=== PATIENT | male | born 1955 ===

== ENCOUNTER 2018-05-28 14:54 | Emergency (ER) | payer OTHER ==
[2018-05-28 15:07] VITALS: TEMP 98.2
--- NOTE | 2018-05-28 15:37 | C.PDOC ---
History Of Present Illness 62-YEAR-OLD MALE, PRESENTS TO THE EMERGENCY DEPARTMENT WITH COMPLAINTS OF RECUR EPISODE DIZZY, PALPITATIONS "SKIPPING" ONSET DIRECTOR SOFTWARE NOW RESOLVED. SIM EPISODE X 1 4 MO AGO, FIRST TIME RECUR TODAY. PENDING PMD APPT 06/14. CURRENTLY ASYMPT. EXAM NEG Time Seen by Provider: 05/28/18 15:19 Chief Complaint (Nursing): Dizziness/Lightheaded History Per: Patient History/Exam Limitations: no limitations Past Medical History Reviewed: Historical Data, Nursing Documentation, Vital Signs Vital Signs: Last Vital Signs Temp 98.2 F 05/28/18 17:15 Pulse 49 L 05/28/18 17:15 Resp 15 05/28/18 17:15 BP 104/58 L 05/28/18 17:15 Pulse Ox 100 05/28/18 17:15 Family History: States: No Known Family Hx - Social History Hx Alcohol Use: Yes Hx Substance Use: No - Immunization History Hx Tetanus Toxoid Vaccination: No Hx Influenza Vaccination: No Hx Pneumococcal Vaccination: No Review Of Systems Constitutional: Negative for: Fever Cardiovascular: Positive for: Palpitations Respiratory: Negative for: Shortness of Breath Gastrointestinal: Negative for: Vomiting Neurological: Positive for: Dizziness Physical Exam - Physical Exam Appears: Non-toxic, No Acute Distress Skin: Normal Color, Warm, Dry, No Rash Head: Atraumatic, Normacephalic Eye(s): bilateral: Normal Inspection, PERRL, EOMI Nose: Normal Oral Mucosa: Moist Lips: Normal Appearing Neck: Normal ROM Cardiovascular: Rhythm Regular, No Murmur Respiratory: Normal Breath Sounds, No Accessory Muscle Use Gastrointestinal/Abdominal: Soft, No Tenderness Back: Normal Inspection Extremity: Normal ROM, No Deformity Neurological/Psych: Oriented x3, Normal Speech (NO FOCAL DEFICIT) ED Course And Treatment - Laboratory Results Result Diagrams: 05/28/18 16:09 05/28/18 15:56 ECG: Interpreted By Me ECG Rhythm: Sinus Rhythm ECG Interpretation: Normal Rate From EC O2 Sat by Pulse Oximetry: 97 Pulse Ox Interpretation: Normal (RA) - Radiology CXR: Interpreted by Me CXR Interpretation: Yes: No Acute Disease Reevaluation Time: 16:43 Reassessment Condition: Unchanged (NO RECUR SX SINCE INITIAL EVAL. VSS) Disposition Counseled Patient/Family Regarding: Studies Performed, Diagnosis, Need For Followup - Disposition Referrals: [facility] [Outside] [facility] [Outside] [facility],P[facility] [Other] Disposition: HOME/ ROUTINE Disposition Time: 16:43 Condition: IMPROVED Instructions: Palpitations (DC) Forms: [employer] (Turkmen) Print Language: PASHTO - Clinical Impression Clinical Impression: Palpitations - Scribe Statement The provider has reviewed the documentation as recorded by the Scribe (Moody Powers) All medical record entries made by the Scribe were at my direction and personally dictated by me. I have reviewed the chart and agree that the record accurately reflects my personal performance of the history, physical exam, medical decision making, and the department course for this patient. I have also personally directed, reviewed, and agree with the discharge instructions and disposition.
[2018-05-28 16:17] LABS: BASO # 0.1 K/uL (0.0-0.2); BASO % 1.2 % (0.0-2.0); EOS # 0.7 K/uL (0.0-0.7); HEMOGLOBIN 14.2 g/dL (12.0-18.0); LYMPH # 1.7 K/uL (1.0-4.3); LYMPH % 28.7 % (20.0-40.0); MEAN CORPUSCULAR HEMOGLOBIN 30.7 pg (27.0-31.0); MEAN CORPUSCULAR HGB CONC 33.8 g/dL (33.0-37.0); MEAN PLATELET VOLUME 7.3 fL (7.2-11.7); MONO # 0.5 K/uL (0.0-0.8); MONO % 9.1 % (0.0-10.0); NRBC % 0.1 % (0.0-2.0); RBC 4.61 Mil/uL (4.40-5.90); RED CELL DISTRIBUTION WIDTH 12.7 % (11.5-14.5)
--- NOTE | 2018-05-28 16:26 | RAD ---
Date of service: 05/28/2018 HISTORY: chest pain COMPARISON: No prior. TECHNIQUE: Chest PA and lateral FINDINGS: LUNGS: No active pulmonary disease. PLEURA: No significant pleural effusion identified. No pneumothorax apparent. CARDIOVASCULAR: Normal. OSSEOUS STRUCTURES: No significant abnormalities. VISUALIZED UPPER ABDOMEN: Normal. OTHER FINDINGS: None. IMPRESSION: No acute cardiopulmonary disease appreciated.
[2018-05-28 16:30] LABS: BLOOD UREA NITROGEN 20 mg/dL (9-20); CALCIUM 9.1 mg/dl (8.6-10.4); GFR NON-AFRICAN AMERICAN > 60
[2018-05-28 17:16] VITALS: BP 104/58; PULSE 49; RESP 15
[2018-05-28 17:36] VITALS: O2SAT 97
--- NOTE | 2018-05-31 16:52 | CARD ---
APPROVED REPORT Date of service: 05/28/2018 EKG Measurement Heart [id number] <Conclusion> Normal sinus rhythm Normal ECG
== END 2018-05-28 17:17 | disposition home or self-care (01) ==
LOC: C.ER 14:54
DX: R00.2 Palpitations (principal)

== ENCOUNTER 2019-02-05 11:14 | Emergency (ER) | payer MEDICAID, OTHER ==
--- NOTE | 2019-02-05 11:57 | C.PDOC ---
History Of Present Illness 63 year old male presents to the ED complaining of difficulty urinating for the last several days. Reports he had to push to urinate lately but has not been able to urinate since yesterday. Reports pain to suprapubic area. Pt has never been seen by an Urologist. Denies fever, chills, nausea, vomiting. Time Seen by Provider: 02/05/19 11:36 Chief Complaint (Nursing): Male Genitourinary History Per: Patient History/Exam Limitations: no limitations Onset/Duration Of Symptoms: Days Current Symptoms Are (Timing): Still Present Quality Of Discomfort: "Pain" Associated Symptoms: denies: Fever, Chills, Nausea, Vomiting Past Medical History Reviewed: Historical Data, Nursing Documentation, Vital Signs Vital Signs: Last Vital Signs Temp 97.8 F 02/05/19 11:15 Pulse 75 02/05/19 11:15 Resp 18 02/05/19 11:15 BP 135/73 02/05/19 11:15 Pulse Ox 97 02/05/19 11:15 Primary Care Provider: FAMILY PROVIDER,NO - Medical History PMH: No Chronic Diseases Surgical History: No Surg Hx Family History: States: No Known Family Hx - Social History Hx Alcohol Use: Yes Hx Substance Use: No - Immunization History Hx Tetanus Toxoid Vaccination: No Hx Influenza Vaccination: No Hx Pneumococcal Vaccination: No Review Of Systems Except As Marked, All Systems Reviewed And Found Negative. Constitutional: Negative for: Fever, Chills Genitourinary: Positive for: Other (difficulty urinating ) Physical Exam - Physical Exam Appears: Non-toxic, No Acute Distress Skin: Warm, Dry, No Rash Head: Normacephalic Eye(s): bilateral: Normal Inspection Nose: Normal Oral Mucosa: Moist Neck: Supple Chest: Symmetrical Cardiovascular: Rhythm Regular Respiratory: Normal Breath Sounds, No Rales, No Rhonchi, No Wheezing Gastrointestinal/Abdominal: Soft, Tenderness (suprapubic tenderness ) Neurological/Psych: Oriented x3, Normal Speech Gait: Steady ED Course And Treatment - Laboratory Results Result Diagrams: 02/05/19 11:51 02/05/19 11:51 O2 Sat by Pulse Oximetry: 97 (RA) Pulse Ox Interpretation: Normal Progress Note: Menon catheter placed without difficulty. 850cc of urine drained with improvement of symptoms. UA sent - no signs of infection. Blood work: no acute abnormalities. Patient will be discharged with a leg bag and referred to Urologist. Disposition - Disposition Referrals: [facility] [Outside] Dangelo Lara MD [Staff Provider] - Disposition: HOME/ ROUTINE Disposition Time: 13:00 Condition: STABLE Additional Instructions: Follow up with Urologist within 1-2 days. Return to ED if feel worse. Prescriptions: Tamsulosin [Flomax] 0.4 mg PO DAILY #30 cap Instructions: How to Care for Your Menon Catheter, Male, Menon Catheter, Male, Urinary Retention (DC) Forms: [employer] (Iranian), Work Excuse Print Language: GIBRALTARIAN - Clinical Impression Clinical Impression: Urinary retention - PA / [employer] / Resident Statement MD/DO has reviewed & agrees with the documentation as recorded. - Scribe Statement The provider has reviewed the documentation as recorded by the Scribe Maia Guadarrama All medical record entries made by the Scribe were at my direction and personally dictated by me. I have reviewed the chart and agree that the record accurately reflects my personal performance of the history, physical exam, medical decision making, and the department course for this patient. I have also personally directed, reviewed, and agree with the discharge instructions and disposition.
[2019-02-05 12:12] LABS: ALB/GLOB RATIO 1.6 (1.0-2.1); ALBUMIN 4.3 g/dL (3.5-5.0); ALT/SGPT 27 U/L (21-72); AST/SGOT 33 U/L (17-59); BLOOD UREA NITROGEN 15 mg/dL (9-20); CALCIUM 8.6 mg/dl (8.6-10.4); GFR NON-AFRICAN AMERICAN > 60
[2019-02-05 12:16] LABS: URINE BILIRUBIN NEGATIVE (NEGATIVE); URINE BLOOD 3+ (NEGATIVE); URINE CLARITY Clear (Clear); URINE COLOR Yellow (YELLOW); URINE GLUCOSE (UA) NORMAL (Normal); URINE LEUKOCYTE ESTERASE NEG Leu/uL (Negative); URINE PROTEIN NEGATIVE (NEGATIVE); URINE UROBILINOGEN NORMAL mg/dL (0.2-1.0)
[2019-02-05 12:22] LABS: BASO % 0.4 % (0.0-2.0); EOS # 0.2 K/uL (0.0-0.7); EOS % 1.9 % (0.0-4.0); HEMOGLOBIN 14.7 g/dL (12.0-18.0); LYMPH # 1.4 K/uL (1.0-4.3); LYMPH % 13.7 % (20.0-40.0); MEAN CELL VOLUME 91.8 fL (80.0-94.0); MEAN CORPUSCULAR HEMOGLOBIN 30.7 pg (27.0-31.0); MEAN CORPUSCULAR HGB CONC 33.4 g/dL (33.0-37.0); MEAN PLATELET VOLUME 7.3 fL (7.2-11.7); MONO # 0.5 K/uL (0.0-0.8); MONO % 5.4 % (0.0-10.0); NEUT % 78.6 % (50.0-75.0); RBC 4.79 Mil/uL (4.40-5.90); RED CELL DISTRIBUTION WIDTH 12.5 % (11.5-14.5)
[2019-02-05 12:23] LABS: WHITE BLOOD COUNT 10.1 K/uL (4.8-10.8)
[2019-02-05 13:51] VITALS: BP 135/79; PULSE 80; RESP 20; TEMP 98.1
[2019-02-05 18:37] VITALS: O2SAT 97
== END 2019-02-05 13:50 | disposition home or self-care (01) ==
LOC: C.ER 11:14
DX: R33.9 Retention of urine, unspecified (principal)